=== PATIENT | female | born 1990 | race African-American/Black ===

== ENCOUNTER 2016-10-16 17:34 | Emergency (ER) | payer SELFPAY ==
[2016-10-16 17:55] VITALS: BP 138/94
[2016-10-16] MEDS ORDERED: OPTH OP ONE ×2 (18:21→18:37)
[2016-10-16] MEDS ORDERED: SULFACETAMIDE SODIUM 10% OP ONE ×2 (18:21→18:37)
--- NOTE | 2016-10-16 18:25 | ED Physician Documentation ---
Eye Problem - HISTORIAN Historian: patient, friend - [facility] Stated Complaint: bilat eye redness Chief Complaint: Eye Problems Additional Information: acute conjunctivitis both eyes onset 5-6 days ago prog worse Onset: days ago (5) Associated symptoms: pain, burining, itching, redness, matting, eyelid swelling , sensitivity to light, blurred vision Location: left eye Severity: moderate Apparent Injury: no Context: denies: foreign body, direct trauma, projectile injury, contact lenses - ROS CONST: no problems MS/SKIN/LYMPH: denies: weakness, numbness, neck pain, back pain CVS/RESP: none - PAST HX Past History: none Allergies/Adverse Reactions: Allergies Allergy/AdvReac Type Severity Reaction Status Date / Time No Known Allergies Allergy Verified 10/16/16 17:42 Home Medications: Ambulatory Orders Medication Instructions Recorded NK [NK] 10/16/16 - SOCIAL HX Smoking History: non-smoker Alcohol Use: occasionally Drug Use: none - FAMILY HX Family History: no significant history - VITAL SIGNS Vital Signs: Vital Signs Temp Pulse Resp BP Pulse Ox 98.6 F 115 H 18 138/94 99 10/16/16 17:44 10/16/16 17:44 10/16/16 17:44 10/16/16 17:44 10/16/16 17:44 - REVIEWED ASSESSMENTS Nursing Assessment Reviewed: Yes Vitals Reviewed: Yes ED Results Lab/Radiology - Orders Orders: ED Orders Category Date Time Status Sulfacetamide Sodium [Bleph-10 10% Opth Katie] Med 10/16/16 18:21 Discontinued 225 drop OP .STK-MED ONE Eye Problem Physical Exam - Physical Exam General Appearance: moderate distress, other (acute coknjunctivitis bilat stuck shut in am) Visual Acuity: no globe trauma Eyelids: erythema (L), erythema (R) Conjunctiva and Sclera: injected (R), injected (L), exudate (R), exudate (L). No: nml inspection EOM: intact Pupils: equal Anterior Chambers: nml inspection Head/ENT: nml inspection Skin: nml color, warm, skin intact. No: ecchymosis, abrasions, laceration Neck/Back: nml inspection Respiratory: no resp distress, chest non-tender, breath sounds normal CVS: reg rate & rhythm, heart sounds normal Abdomen: non-tender Neuro/Psych: oriented x3, neuro intact, mood/affect nml Discharge Clincal Impression: Acute epidemic conjunctivitis of both eyes Home Medications: Ambulatory Orders NK [NK] 10/16/16 Comments: see ophthalmologists soon if not better soon. also take po claritin and will give her sulfacetamide from here since pharmacy is closed Condition: Good Disposition: 01 HOME, SELF-CARE Decision to Admit: NO Decision Time: 18:31
== END 2016-10-16 18:40 | disposition home or self-care (01) ==
LOC: ED 17:34
DX: H10.33 Unspecified acute conjunctivitis, bilateral (principal)
CPT/HCPCS: 99283

== ENCOUNTER 2018-04-17 07:05 | Emergency (ER) | payer OTHER ==
[2018-04-17] MEDS ORDERED: 0.9 % SODIUM CHLORIDE 1,000 ML IV ONE (07:30)
--- NOTE | 2018-04-17 07:38 | ED Physician Documentation ---
Female Urogenital Problems - HISTORIAN Historian: patient - HPI Stated Complaint: dizziness Chief Complaint: Dizziness Additional Information: Intro self as CHEMISTRY LECTURER. Pt is a 28F pleasant AA Female that presents to the ED via POV c/o dizziness x 2 episodes earlier this morning that is now resolved. Pt works at a long-term and had the episodes while changing from sitting to standing. denies heavy lifting. Pt reports she ate dinner last night 1999(baked potato and cheeseburger) and drank one glass of tea and one glass of water. pt reports movement Pt takes asa 81 mg daily for unknown reason and vitamin daily. Pt reports she is 6 months into and due jul 06 [address] Dr Lorin garcia [place] and has an appt tomorrow. last seen one month ago. POC blood glucose 92 upon arrival. FHT 148. pt reports mild back pain that she has had off/on for several weeks. Pt denies vaginal discharge, bleeding/leakage of fluid, chest pain, dyspnea, rash, fever, cough, headache. Onset: other (earlier this morning) Severity: mild - Vaginal Bleeding : 3 Para: 2 : 0 Care: Yes (Dr Lorin Garcia ) Sexual History: inactive - Associated Symptoms Urinary Symptoms: denies: blood in urine, frequent urination, discomfort w/ urination, burning w/ urination, urgency w/ urination, pain w/ urination Discharge: denies: vaginal discharge, vaginal fluid leakage, odorous discharge - ROS CONST: none. denies: fever, chills GI/: denies: nausea, vomiting, decreased appetite CVS/RESP: denies: none, chest pain, shortness of breath, cough NEURO/PSYCH: dizzy. denies: headache, fainting MS/SKIN/LYMPH: other (back pain ) - PAST HX Past History: other (Preeclampsia with first ) Surgeries/Procedures: (x2 ) Allergies/Adverse Reactions: Allergies Allergy/AdvReac Type Severity Reaction Status Date / Time No Known Allergies Allergy Verified 10/16/16 17:42 Home Medications: Ambulatory Orders Medication Instructions Recorded NK 10/16/16 - SOCIAL HX Smoking History: non-smoker Alcohol Use: none Drug Use: none - FAMILY HX Family History: none - VITAL SIGNS Vital Signs: Vital Signs Temp Pulse Resp BP Pulse Ox 138/94 10/16/16 18:40 - REVIEWED ASSESSMENTS Nursing Assessment Reviewed: Yes Vitals Reviewed: Yes Progress - Progress Progress: 0855- Pt orthostatics negative and improved. pt able to ambulate without dizziness/difficulty. Pt reports readiness for d/c. educated pt on s/s of labor and to report to OB and importance of healthy diet and hydration. written and verbal education provided. all questions answered. understanding verbalized. ED Results Lab/Radiology - Lab Results Lab Results: EKG 0749 Rate 91 normal intervals, axis, QRS. no st depression or elevation. normal sinus rhythm interp by me. - Orders Orders: ED Orders Category Date Time Status Heart Tones 1T Care 04/17/18 07:28 Ordered Orthostatics 1T Care 04/17/18 07:[address] IV Lock 1T Care 04/17/18 07:29 Ordered CBC PLATELETS NO DIFF Stat Lab 04/17/18 07:29 Uncollected CMP Routine Lab 04/17/18 Ordered UA W/MICRO IF INDICATED Stat Lab 04/17/18 07:28 Uncollected NORMAL SALINE @ 1000 MLS/HR ( 1000ml BOLUS) Med 04/17/18 07:30 Ordered 0.9 % Sodium Chloride [Normal Saline] 1,000 ml IV Q1H EKG WITH COMPARISON Stat Ther 04/17/18 Ordered Female Urogenital Problems - EXAM General Appearance: no acute distress, alert, other (+orthostatic vitals) EENT: eye inspection normal, ENT inspection normal, JEFF, TM's nml, dry mucous membranes Neck: nml inspection. No: lymphadenopathy Respiratory: no resp. distress, breath sounds nml. No: wheezes, rales CVS: reg rate & rhythm, heart sounds normal, no murmur, no gallop Abdomen: soft, non-tender, gravid uterus (no contraction ). No: tenderness Pelvic: deferred Back: non-tender, painless ROM. No: vertebral point-tendernes, CVA tenderness Skin: color nml, no rash, warm,dry Extremities: non-tender, normal range of motion, no edema Neuro: oriented X3, CN's nml as tested, motor nml, sensation nml, mood/affect nml, cognition normal Discharge Clincal Impression: Dehydration during Qualifiers: Weeks of gestation: 24 weeks Qualified Code(s): Z3A.24 - 24 weeks gestation of Referrals: Primary Doctor,No [Primary Care Provider] - 2 Days Additional Instructions: Follow up with DR Padgett OB tomorrow as scheduled. Have a gatoraid or water in your hand to drink through day. 3 meals with snacks in between. wear support stockings Return if worse or seek OB care if you have vaginal bleeding/discharge, gush of fluid, abdominal pain, chest pain, shortness of breath, or any concern. Comments: Dr Cota Present and agrees with plan of care. Condition: Good Disposition: 01 HOME, SELF-CARE Decision to Admit: NO Date of Decison to Admit: 04/17/18 Decision Time: 08:44
[2018-04-17 08:06] LABS: eGFR (Non-African) > 60
[2018-04-17 09:09] VITALS: BP 130/60
[2018-04-17 13:31] LABS: APPEARANCE,URINE CLOUDY (CLEAR); COLOR,URINE YELLOW (YELLOW); OCCULT BLOOD,URINE NEGATIVE (NEGATIVE); UROBILINOGEN URINE 0.2 Eu (0.2-1.0)
== END 2018-04-17 09:06 | disposition home or self-care (01) ==
LOC: ED 07:05
DX: O21.1 Hyperemesis gravidarum with metabolic disturbance (principal); Z3A.24 24 weeks gestation of pregnancy; E86.0 Dehydration
CPT/HCPCS: 80053; 81002; 85027; 87086; 93005; J7030; 96360; 99284; S1016

== ENCOUNTER 2018-06-03 22:28 | Emergency (ER) | payer OTHER ==
--- NOTE | 2018-06-03 22:45 | ED Physician Documentation ---
General Adult - HISTORIAN Historian: patient - HPI Stated Complaint: possible rutpured membrane /labor Chief Complaint: Female Urogenital Problems Onset: days ago (2) Timing: still present Severity: mild Further Comments: yes (She reports she is 35 weeks (and some days) This is her 3rd and she is going to have a Csection schduled however her dr states if she comes in labor she can deliver. She has never had labor so she is concerned with some loss of fluid. She feels she had a wet spot in her car earlier She has some lower back pain and increased pressure in her lower belly and vagina . No bleeding. No consistent cramps or contractions) - ROS CONST: no problems GI/: denies: problems urinating, vomiting, nausea MS/SKIN/LYMPH: denies: rash NEURO/PSYCH: denies: headache, fainting, dizziness - PAST HX Past History: none Immunizations: UTD Allergies/Adverse Reactions: Allergies Allergy/AdvReac Type Severity Reaction Status Date / Time No Known Allergies Allergy Verified 06/03/18 23:25 Home Medications: Ambulatory Orders Medication Instructions Recorded NK 10/16/16 - SOCIAL HX Smoking History: non-smoker Alcohol Use: none Drug Use: none - FAMILY HX Family History: No - VITAL SIGNS Vital Signs: Vital Signs Temp Pulse Resp BP Pulse Ox 130/60 04/17/18 09:06 - REVIEWED ASSESSMENTS Nursing Assessment Reviewed: Yes Vitals Reviewed: Yes General Adult Physical Exam - PHYSICAL EXAM GENERAL APPEARANCE: no distress EENT: eye inspection normal, no signs of dehydration NECK: normal inspection RESPIRATORY: no resp distress, chest non-tender, breath sounds normal CVS: reg rate & rhythm, heart sounds normal ABDOMEN: soft, no distension, other (no palpated contractions - heart tones doppled at 142 RLQ ) RECTAL: other (posterior vagnial exam does not reveal any fluid, bleeding or other concerns ) BACK: normal inspection SKIN: warm/dry, normal color EXTREMITIES: non-tender, normal range of motion, no edema NEURO: oriented X3 Discharge Clincal Impression: Low back pain Qualifiers: Weeks of gestation: 35 weeks Qualified Code(s): Z3A.35 - 35 weeks gestation of Referrals: Primary Doctor,No [Primary Care Provider] - 2 Days Comments: Present to [facility] for eval Call 911 for any concerns in transit Accepting [facility] Discussed with OB Nurse at [facility] and they would like pt to come to OB dept if no obvious labor DG Condition: Stable Disposition: 07 AGAINST MEDICAL ADVICE Decision to Admit: NO Date of Decison to Admit: 06/03/18 Decision Time: 23:50
[2018-06-03 23:42] VITALS: BP 117/73
[2018-06-04 09:16] LABS: OCCULT BLOOD,URINE NEGATIVE (NEGATIVE)
== END 2018-06-03 23:40 | disposition left against medical advice (07) ==
LOC: ED 22:28
DX: Z34.83 Encounter for supervision of other normal pregnancy, third trimester (principal); M54.5 Low back pain
CPT/HCPCS: 81002; 99282; 99283